=== PATIENT | female | born 1990 | race Caucasian/White ===

== ENCOUNTER 2023-10-01 08:00 | Outpatient (CLI) | payer OTHER | END 2023-10-01 23:59 | disposition home or self-care (01) | LOC: LAB 08:00 | PROVIDERS: ATTEND Nurse Practitioner | DX: N63.0 Unspecified lump in unspecified breast (principal) | CPT/HCPCS: 87070; 87075 ==

== ENCOUNTER 2023-10-10 10:48 | Outpatient (CLI) | payer OTHER ==
--- NOTE | 2023-10-10 15:53 | Ultrasound Report ---
LIMITED ULTRASOUND OF RIGHT BREAST: 10/10/2023 CLINICAL: Palpable right breast lump. No prior exams were available for comparison. Color flow and real-time ultrasound of the right breast 12 o'clock region were performed. Hoang scale images of the real-time examination were reviewed. Irregular possible abscesses are seen at the area of clinical concern, measuring 2.3 x 2.7 x 1.2cm 10 cm from the nipple. Additional 2cm area noted 5cm from the nipple also at 12:00. IMPRESSION: PROBABLY BENIGN Possible phlegmons vs. early abscesses at 12:00 as described above. Recent history of mastitis. Clini vesna followup and evaluation recommended. A follow-up ultrasound in 1 month is recommended after treatment. This exam was interpreted at Station ID: [id number]. Electronically Signed By: Ton Evans M.D. lc/:10/10/2023 11:25:46 Ultrasound BI-RADS: 3 Probably benign BI-RADS CATEGORY: (3) - 3 Ultrasound [id number] 1 month follow-up LATERALITY: (B)
== END 2023-10-10 10:49 | disposition home or self-care (01) ==
LOC: DI 10:48
PROVIDERS: ATTEND Nurse Practitioner
DX: N63.10 Unspecified lump in the right breast, unspecified quadrant (principal); Z87.42 Personal history of other diseases of the female genital tract